=== PATIENT | female | born 2000 | race Caucasian/White ===

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

== ENCOUNTER → 2021-03-27 | Outpatient (CLI) | payer BC, OTHER | END | disposition home or self-care (01) | LOC: LABWHC1 13:04 | PROVIDERS: ATTEND Emergency Medicine | DX: Z20.822 Contact with and (suspected) exposure to COVID-19 (principal) | CPT/HCPCS: 87635 ==

== ENCOUNTER → 2021-03-28 | Outpatient (CLI) | payer BC, OTHER | END | disposition home or self-care (01) | LOC: LABWHC1 13:47 | PROVIDERS: ATTEND Emergency Medicine | DX: Z03.818 Encounter for observation for suspected exposure to other biological agents ruled out (principal); Z20.828 Contact with and (suspected) exposure to other viral communicable diseases | CPT/HCPCS: 87635 ==

== ENCOUNTER 2023-03-21 22:20 | Emergency (ER) | payer BC, OTHER ==
--- NOTE | 2023-03-21 22:26 | ED ---
General Adult HPI - General Chief complaint: Extremity Injury, Lower Stated complaint: Right foot Injury Time Seen by Provider: 03/21/23 22:25 Source: patient, RN notes reviewed - History of Present Illness Initial comments: 23 year old female presents to the emergency department for chief complaint of right foot pain. She states that she jumped over the couch and her foot bent inward. She reports pain to her lateral right foot. She states that if she attempts to bear weight and she has significant pain in her foot. She admits to taking acetaminophen following the incident. Denies numbness, tingling. - Related Data Home Medications Medication Instructions Recorded Confirmed Aspirin/Acetaminophen/Caffeine 1 each PO DIRECTED 12/22/16 12/22/16 [Excedrin Migraine Caplet] Cyanocobalamin [Vitamin B-12] 12/22/16 Previous Rx's Medication Instructions Recorded Ondansetron Odt [Zofran Odt] 4 mg PO Q8HR PRN #8 tab 12/22/16 Amoxicillin/Potassium Clav 1 tab PO Q12HR #20 tab 05/29/19 [Augmentin 875-125 Tablet] valACYclovir HCL [Valtrex] 1,000 mg PO Q8HR #30 tab 05/29/19 Allergies Allergy/AdvReac Type Severity Reaction Status Date / Time No Known Allergies Allergy Verified 03/21/23 22:26 Review of Systems ROS Statement: Those systems with pertinent positive or pertinent negative responses have been documented in the HPI. ROS Other: All systems not noted in ROS Statement are negative. Past Medical History Past Medical History: No Reported History History of Any Multi-Drug Resistant Organisms: None Reported Past Surgical History: No Surgical Hx Reported Past Psychological History: No Psychological Hx Reported Past Alcohol Use History: None Reported Past Drug Use History: None Reported General Exam - General Exam Comments Initial Comments: Physical Exam Vital signs reviewed General: Well-appearing, nontoxic, no acute distress. Head: Normocephalic, atraumatic Eyes: PERRLA, EOMI ENT: Airway patent Chest: Nonlabored breathing Skin: No visual rash, normal skin tone Neuro: Alert and oriented 3 Musculoskeletal: No gross abnormalities Limitations: physical limitation General appearance: alert, in no apparent distress Head exam: Present: atraumatic, normocephalic, normal inspection Eye exam: Present: normal appearance Respiratory exam: Present: normal lung sounds bilaterally. Absent: respiratory distress, wheezes, rales, rhonchi, stridor Cardiovascular Exam: Present: regular rate, normal rhythm, normal heart sounds. Absent: systolic murmur, diastolic murmur, rubs, gallop, clicks Extremities exam: Present: tenderness (Lateral right foot), normal capillary refill, other (DP and PT pulses 2+ ). Absent: full ROM (Decreased due to pain), pedal edema, joint swelling Neurological exam: Present: alert, oriented X3 Psychiatric exam: Present: normal affect, normal mood Skin exam: Present: warm, dry, intact, normal color. Absent: rash Course Vital Signs 03/21/23 03/21/23 22:24 23:40 Temperature 97.7 F Pulse Rate 97 69 Respiratory 16 18 Rate Blood Pressure 144/89 135/83 O2 Sat by Pulse 99 99 Oximetry Procedures - Orthopedic Splinting/Casting Injury #1 Side: right Lower Extremity Injury Location: short leg Other Orthopedic Equipment: crutches Medical Decision Making - Medical Decision Making I preformed the quick note portion of this chart. Electronically signed by Pat Dupont PA-C Was pt. sent in by a medical professional or institution (OLGA Riggins, BORING MACHINE SET UP OPERATOR, urgent care, hospital, or senior care...) When possible be specific @ -No Did you speak to anyone other than the patient for history (EMS, parent, family, police, friend...)? What history was obtained from this source @ -No Did you review nursing and triage notes (agree or disagree)? Why? @ -I reviewed and agree with nursing and triage notes Were old charts reviewed (outside hosp., previous admission, EMS record, old EKG, old radiological studies, urgent care reports/EKG's, senior care records)? Report findings @ -No old charts were reviewed Differential Diagnosis (chest pain, altered mental status, abdominal pain women, abdominal pain men, vaginal bleeding, weakness, fever, dyspnea, syncope, headache, dizziness, GI bleed, back pain, seizure, CVA, palpatations, mental health, musculoskeletal)? @ -Differential Musculoskeletal Muscular strain, contusion, ligament sprain, fracture, arthritis, septic arthritis, bursitis, cellulitis, muscle spasm, nerve compression, DVT, arterial occlusion, herpes zoster, electrolyte abnormality, tumor.... This is not meant to be in all inclusive list EKG interpreted by me (3pts min.). @ -None X-rays interpreted by me (1pt min.). @ XR foot showsfracture of the fifth metatarsal diaphysis CT interpreted by me (1pt min.). @ -None done U/S interpreted by me (1pt. min.). @ -None done What testing was considered but not performed or refused? (CT, X-rays, U/S, labs)? Why? @ -None What meds were considered but not given or refused? Why? @ -None Did you discuss the management of the patient with other professionals (professionals i.e. , PA, BORING MACHINE SET UP OPERATOR, lab, RT, psych nurse, social work nurse, looping inspector, teacher, correctional officer lieutenant, supportive employment case manager)? Give summary @ -No Was smoking cessation discussed for >3mins.? @ -No Was critical care preformed (if so, how long)? @ -No Were there social determinants of health that impacted care today? How? (Homelessness, low income, unemployed, alcoholism, drug addiction, transportation, low edu. Level, literacy, decrease access to med. care, prison, rehab)? @ -No Was there de-escalation of care discussed even if they declined (Discuss DNR or withdrawal of care, Hospice)? DNR status @ -No What co-morbidities impacted this encounter? (DM, HTN, Smoking, COPD, CAD, Cancer, CVA, ARF, Chemo, Hep., AIDS, mental health diagnosis, sleep apnea, morbid obesity)? @ -None Was patient admitted / discharged? Hospital course, mention meds given and route, prescriptions, significant lab abnormalities, going to OR and other pertinent info. @ -Discharged. Patient presented to emergency department chief complaint of right lateral foot pain following an injury in which she landed on the side of her foot. XR right foot shows 5th metatarsal diaphysis fracture. Patient placed in short leg splint and given crutches and orthopedic follow up. Neurovascular status assessed post splint and intact. Patient stable at time of discharge. Case discussed with Dr. Mota Undiagnosed new problem with uncertain prognosis? @ -No Drug Therapy requiring intensive monitoring for toxicity (Heparin, Nitro, Insulin, Cardizem)? @ -No Were any procedures done? @ -Splint Diagnosis/symptom? @ -5th metatarsal fracture Acute, or Chronic, or Acute on Chronic? @ -acute Uncomplicated (without systemic symptoms) or Complicated (systemic symptoms)? @ -uncomplicated Side effects of treatment? @ -No Exacerbation, Progression, or Severe Exacerbation? @ -No Poses a threat to life or bodily function? How? (Chest pain, [place], [place], pneumonia, PE, COPD, DKA, ARF, appy, cholecystitis, CVA, Diverticulitis, Homicidal, Suicidal, threat to staff... and all critical care pts) @ -No Disposition Clinical Impression: Fracture of 5th metatarsal Disposition: HOME SELF-CARE Condition: Stable Instructions (If sedation given, give patient instructions): Foot Fracture in Adults (ED) Additional Instructions: Please follow up with orthopedics. Return to the emergency department for new or worsening symptoms. Is patient prescribed a controlled substance at d/c from ED?: No Referrals: None,Stated [Primary Care Provider] - 1-2 days Cortes Weeks DO [Doctor of Osteopathic Medicine] - 1-2 days
[2023-03-21 22:32] VITALS: TEMP 97.7
[2023-03-22 00:01] VITALS: BP 135/83; PULSE 69; RESP 18
--- NOTE | 2023-03-22 00:49 | XR ---
EXAM: XR Right Foot Complete, 3 or More Views CLINICAL HISTORY: ITS.REASON XR Reason: twisting injury TECHNIQUE: Frontal, lateral and oblique views of the right foot. COMPARISON: No relevant prior studies available. FINDINGS: Bones/joints: Nondisplaced fracture of the fifth metatarsal diaphysis. No dislocation. Soft tissues: Unremarkable. No radiopaque foreign body. IMPRESSION: Nondisplaced fracture of the fifth metatarsal diaphysis.
== END 2023-03-21 23:42 | disposition home or self-care (01) ==
LOC: EC 22:20
DX: S92.351A Displaced fracture of fifth metatarsal bone, right foot, initial encounter for closed fracture (principal); Z79.82 Long term (current) use of aspirin; X50.1XXA Overexertion from prolonged static or awkward postures, initial encounter
CPT/HCPCS: 29515; 99283

== ENCOUNTER → 2023-11-09 | Outpatient (CLI) | payer OTHER ==
[2023-11-09 23:16] LABS: Basophils # (A) 0.06 X 10*3/uL (0.00-0.10); Basophils % (A) 1.6 %; Eosinophils # (A) 0.14 X 10*3/uL (0.04-0.35); Eosinophils % (A) 3.7 %; HCT 41.8 % (37.2-46.3); HGB 13.8 g/dL (12.0-15.0); Lymphocytes # (A) 1.26 X 10*3/uL (0.90-5.00); Lymphocytes % (A) 33.3 %; MCH 29.7 pg (27.0-32.0); MCV 90.1 FL (80.0-97.0); Mean Platelet Volume 10.5 FL (9.5-12.2); Monocytes # (A) 0.32 X 10*3/uL (0.20-1.00); Monocytes % (A) 8.5 %; NRBC Per 100 WBC 0 X 10*3/uL (0.00-0.01); Neutrophils # (A) 1.99 X 10*3/uL (1.80-7.70); Neutrophils % (A) 52.6 %; Platelet Count 178 X 10*3/uL (140-440); RBC 4.64 X 10*6/uL (4.10-5.20); RDW 11.9 % (11.5-14.5); WBC 3.78 X 10*3/uL (4.50-10.00)
[2023-11-11 15:53] LABS: Cardiolipin Ab IgG Interp Negative (Negative); Cardiolipin Ab IgM Interp Negative (Negative); Cardiolipin IgA Antibody <2.0 U/mL; Cardiolipin IgM Antibody <1.5 U/mL
== END | disposition home or self-care (01) ==
LOC: LABWHC1 10:19
PROVIDERS: ATTEND Dermatology MOHS-Micrographic Surgery
DX: L82.1 Other seborrheic keratosis (principal); R23.1 Pallor
CPT/HCPCS: 36415; 85025; 86038; 86147

== ENCOUNTER 2024-02-27 19:54 | Emergency (ER) | payer OTHER ==
[2024-02-27 20:12] VITALS: TEMP 98.2
--- NOTE | 2024-02-27 20:34 | ED ---
Nausea/Vomiting/Diarrhea HPI - General Chief complaint: Nausea/Vomiting/Diarrhea Stated complaint: 8 wks preg, vomiting Time Seen by Provider: 02/27/24 20:10 Source: patient, RN notes reviewed Mode of arrival: ambulatory Limitations: no limitations - History of Present Illness Initial comments: 23-year-old female G1, presents emergency department accompanied by her with chief complaint of nausea, vomiting, abdominal cramping during . Patient believes that she is about 10 weeks gestation and has had 1 visit during this however has had no ultrasounds. She states that she has been having multiple episodes of emesis and feels nauseous quite frequently which is causing her to decreased oral intake. Patient is concerned that she is dehydrated. She endorses mild abdominal cramping. Denies vaginal bleeding - Related Data Home Medications Medication Instructions Recorded Confirmed Aspirin/Acetaminophen/Caffeine 1 each PO DIRECTED 12/22/16 12/22/16 [Excedrin Migraine Caplet] Cyanocobalamin [Vitamin B-12] 12/22/16 Previous Rx's Medication Instructions Recorded Ondansetron Odt [Zofran Odt] 4 mg PO Q8HR PRN #8 tab 12/22/16 Amoxicillin/Potassium Clav 1 tab PO Q12HR #20 tab 05/29/19 [Augmentin 875-125 Tablet] valACYclovir HCL [Valtrex] 1,000 mg PO Q8HR #30 tab 05/29/19 Ondansetron Odt [Zofran Odt] 4 mg PO Q8HR PRN #10 tab 02/27/24 Allergies Allergy/AdvReac Type Severity Reaction Status Date / Time No Known Allergies Allergy Verified 02/27/24 20:11 Review of Systems ROS Statement: Those systems with pertinent positive or pertinent negative responses have been documented in the HPI. ROS Other: All systems not noted in ROS Statement are negative. Past Medical History Past Medical History: No Reported History History of Any Multi-Drug Resistant Organisms: None Reported Past Surgical History: No Surgical Hx Reported Past Psychological History: No Psychological Hx Reported Smoking Status: Never smoker Past Alcohol Use History: None Reported Past Drug Use History: None Reported General Exam Limitations: no limitations General appearance: alert, in no apparent distress Eye exam: Present: normal appearance, PERRL, EOMI. Absent: scleral icterus, conjunctival injection, periorbital swelling ENT exam: Present: normal exam, mucous membranes moist Neck exam: Present: normal inspection. Absent: tenderness, meningismus, lymphadenopathy Respiratory exam: Present: normal lung sounds bilaterally. Absent: respiratory distress, wheezes, rales, rhonchi, stridor Cardiovascular Exam: Present: regular rate, normal rhythm, normal heart sounds. Absent: systolic murmur, diastolic murmur, rubs, gallop, clicks GI/Abdominal exam: Present: soft, tenderness (suprapubic), normal bowel sounds. Absent: distended, guarding, rebound, rigid Extremities exam: Present: normal inspection, full ROM, normal capillary refill. Absent: tenderness, pedal edema, joint swelling, calf tenderness Back exam: Present: normal inspection Skin exam: Present: warm, dry, intact, normal color. Absent: rash Course Vital Signs 02/27/24 02/27/24 20:09 21:35 Temperature 98.2 F Pulse Rate 96 70 Respiratory 17 16 Rate Blood Pressure 128/84 107/75 O2 Sat by Pulse 98 100 Oximetry Medical Decision Making - Medical Decision Making Was pt. sent in by a medical professional or institution (, PA, RADIOLOGIC THERAPIST, urgent care, hospital, or [facility]...) When possible be specific @ -No Did you speak to anyone other than the patient for history (EMS, parent, family, police, friend...)? What history was obtained from this source @ -No Did you review nursing and triage notes (agree or disagree)? Why? @ -I reviewed and agree with nursing and triage notes Were old charts reviewed (outside hosp., previous admission, EMS record, old EKG, old radiological studies, urgent care reports/EKG's, [facility] records)? Report findings @ -No old charts were reviewed Differential Diagnosis (chest pain, altered mental status, abdominal pain women, abdominal pain men, vaginal bleeding, weakness, fever, dyspnea, syncope, headach e, dizziness, GI bleed, back pain, seizure, CVA, palpatations, mental health, musculoskeletal)? @ -Differential Abdominal Pain Women: Appendicitis, Cholecystitis, diverticulosis, ischemic bowel, pancreatitis, hepatitis, UTI, gastroenteritis, AAA, incarcerated hernia, bowel obstruction, constipation, inflammatory bowel, hepatitis, peptic ulcer disease, splenic infarction, perforated viscus, vulvitis, ovarian torsion, PID, kidney stone, placenta abruption, this is not meant to be an all-inclusive list EKG interpreted by me (3pts min.). @ -None X-rays interpreted by me (1pt min.). @ -None done CT interpreted by me (1pt min.). @ -None done U/S interpreted by me (1pt. min.). @ -Ultrasound reveals a single live intrauterine with a calculated gestational age of 8 weeks 3 days with a heart rate of 165 bpm What testing was considered but not performed or refused? (CT, X-rays, U/S, labs)? Why? @ -None What meds were considered but not given or refused? Why? @ -None Did you discuss the management of the patient with other professionals (professionals i.e. , PA, RADIOLOGIC THERAPIST, lab, RT, psych nurse, social human services assistants, group billing coordinator, teacher, search and rescue officer, comp field case manager)? Give summary @ -No Was smoking cessation discussed for >3mins.? @ -No Was critical care preformed (if so, how long)? @ -No Were there social determinants of health that impacted care today? How? (Homelessness, low income, unemployed, alcoholism, drug addiction, transportation, low edu. Level, literacy, decrease access to med. care, skilled nursing, rehab)? @ -No Was there de-escalation of care discussed even if they declined (Discuss DNR or withdrawal of care, Hospice)? DNR status @ -No What co-morbidities impacted this encounter? (DM, HTN, Smoking, COPD, CAD, Cancer, CVA, ARF, Chemo, Hep., AIDS, mental health diagnosis, sleep apnea, morbid obesity)? @ -None Was patient admitted / discharged? Hospital course, mention meds given and route, prescriptions, significant lab abnormalities, going to OR and other p ertinent info. @ - discharged. 23-year-old female with abdominal cramping, nausea and vomiting during . Patient's vitals are stable. Physical examination benign aside from mild suprapubic tenderness to palpation. Patient is symptomatically treated with IV fluids and antiemetics pending laboratory results and ultrasound. She is in agreement with this plan. CBC and CMP unremarkable, urinalysis remarkable for 4+ ketones which is consistent with dehydration. Which was unremarkable for similar intrauterine with an age of 8 weeks 3 days gestational heart rate of 165. Patient is provided with prescription for Zofran to take as needed. Patient has an appointment scheduled with her OB already for further evaluation recommends to keep this appointment. All questi ons answered at bedside and strict return parameters jane the patient she is verbalized understanding. Case discussed with Dr. Burton Undiagnosed new problem with uncertain prognosis? @ -No Drug Therapy requiring intensive monitoring for toxicity (Heparin, Nitro, Insulin, Cardizem)? @ -No Were any procedures done? @ -No Diagnosis/symptom? @ -nasuea and vomiting during , abdominal cramping during , intrauterine Acute, or Chronic, or Acute on Chronic? @ -Acute Uncomplicated (without systemic symptoms) or Complicated (systemic symptoms)? @ -uncomplicated Side effects of treatment? @ -No Exacerbation, Progression, or Severe Exacerbation? @ -No Poses a threat to life or bodily function? How? (Chest pain, [place], [place], pneumonia, PE, COPD, DKA, ARF, appy, cholecystitis, CVA, Diverticulitis, Homicidal, Suicidal, threat to staff... and all critical care pts) @ -No - Lab Data Result diagrams: 02/27/24 20:54 02/27/24 20:54 Lab Results 02/27/24 02/27/24 02/27/24 Range/Units 20:54 20:54 20:54 WBC 7.4 (3.8-10.6) k/uL RBC 4.73 (3.80-5.40) m/uL Hgb 14.3 (11.4-16.0) gm/dL Hct 42.6 (34.0-46.0) % MCV 90.0 (80.0-100.0) fL MCH 30.3 (25.0-35.0) pg MCHC 33.7 (31.0-37.0) g/dL RDW 11.9 (11.5-15.5) % Plt Count 194 (150-450) k/uL MPV 6.8 Neutrophils % 73 % Lymphocytes % 19 % Monocytes % 5 % Eosinophils % 1 % Basophils % 1 % Neutrophils # 5.4 (1.3-7.7) k/uL Lymphocytes # 1.4 (1.0-4.8) k/uL Monocytes # 0.4 (0-1.0) k/uL Eosinophils # 0.1 (0-0.7) k/uL Basophils # 0.0 (0-0.2) k/uL Sodium 136 L (137-145) mmol/L Potassium 3.7 (3.5-5.1) mmol/L Chloride 103 (98-107) mmol/L Carbon Dioxide 24 (22-30) mmol/L Anion Gap 9 mmol/L BUN 9 (7-17) mg/dL Creatinine 0.61 (0.52-1.04) mg/dL Est GFR (CKD-EPI)AfAm >90 (>60 ml/min/1.73 sqM) Est GFR (CKD-EPI)NonAf >90 (>60 ml/min/1.73 sqM) Glucose 79 (74-99) mg/dL Calcium 9.4 (8.4-10.2) mg/dL Total Bilirubin 0.7 (0.2-1.3) mg/dL AST 31 (14-36) U/L ALT 23 (4-34) U/L Alkaline Phosphatase 57 (38-126) U/L Total Protein 7.1 (6.3-8.2) g/dL Albumin 4.5 (3.5-5.0) g/dL Urine Color Yellow Urine Appearance Cloudy H (Clear) Urine pH 6.0 (5.0-8.0) Ur Specific [place] 1.026 (1.001-1.035) Urine Protein Trace H (Negative) Urine Glucose (UA) Negative (Negative) Urine Ketones 4+ H (Negative) Urine Blood Negative (Negative) Urine Nitrite Negative (Negative) Urine Bilirubin Negative (Negative) Urine Urobilinogen <2.0 (<2.0) mg/dL Ur Leukocyte Esterase Negative (Negative) Urine RBC <1 (0-5) /hpf Urine WBC 1 (0-5) /hpf Ur Squamous Epith Cells 3 (0-4) /hpf Urine Mucus Many H (None) /hpf Disposition Clinical Impression: Nausea and vomiting during , Abdominal cramping affecting Disposition: HOME SELF-CARE Condition: Good Instructions (If sedation given, give patient instructions): Nausea and Vomiting in (ED) Additional Instructions: Return to the emergency department for any new or worsening symptoms. Recommend that you increase hydration. Take prescribed medication only as needed for nausea. Prescriptions: Ondansetron Odt [Zofran Odt] 4 mg PO Q8HR PRN #10 tab PRN Reason: Nausea Is patient prescribed a controlled substance at d/c from ED?: No Referrals: None,Stated [Primary Care Provider] - 1-2 days Time of Disposition: 22:04
[2024-02-27] MEDS: SODIUM CHLORIDE 0.9% 2,000 ML IV STA (20:54)
[2024-02-27] MEDS: ONDANSETRON 4 MG/2 ML VIAL IVP STA (20:54)
[2024-02-27 20:58] LABS: Basophils % (A) 1 %; Eosinophils # (A) 0.1 k/uL (0-0.7); Eosinophils % (A) 1 %; HCT 42.6 % (34.0-46.0); HGB 14.3 gm/dL (11.4-16.0); Lymphocytes # (A) 1.4 k/uL (1.0-4.8); Lymphocytes % (A) 19 %; MCH 30.3 pg (25.0-35.0); MCHC 33.7 g/dL (31.0-37.0); Mean Platelet Volume 6.8; Monocytes # (A) 0.4 k/uL (0-1.0); Monocytes % (A) 5 %; Neutrophils # (A) 5.4 k/uL (1.3-7.7); Neutrophils % (A) 73 %; Platelet Count 194 k/uL (150-450); RBC 4.73 m/uL (3.80-5.40); RDW 11.9 % (11.5-15.5); WBC 7.4 k/uL (3.8-10.6)
[2024-02-27 21:07] LABS: ALT 23 U/L (4-34); AST 31 U/L (14-36); African American GFR (CKD) >90 (>60 ml/min/1.73 sqM); Albumin 4.5 g/dL (3.5-5.0); Alkaline Phosphatase 57 U/L (38-126); Anion Gap 9 mmol/L; Blood Urea Nitrogen 9 mg/dL (7-17); Calcium 9.4 mg/dL (8.4-10.2); Carbon Dioxide 24 mmol/L (22-30); Chloride 103 mmol/L (98-107); Glucose 79 mg/dL (74-99); Non-African American GFR(CKD) >90 (>60 ml/min/1.73 sqM); Potassium 3.7 mmol/L (3.5-5.1); Sodium 136 mmol/L (137-145); Total Bilirubin 0.7 mg/dL (0.2-1.3); Total Protein 7.1 g/dL (6.3-8.2)
[2024-02-27 21:09] LABS: Appearance,Urine Cloudy (Clear); Bilirubin,Urine Negative (Negative); Blood,Urine Negative (Negative); Color,Urine Yellow; Glucose,Urine (UA) Negative (Negative); Ketones,Urine 4+ (Negative); Leukocyte Esterase,Urine Negative (Negative); Mucus,Urine Many /hpf; Nitrite,Urine Negative (Negative); Protein,Urine Trace (Negative); RBC,Urine <1 /hpf (0-5); Specific Gravity,Urine 1.026 (1.001-1.035); Squamous Epithelial Cell,Urine 3 /hpf (0-4); Urobilinogen,Urine <2.0 mg/dL (<2.0); WBC,Urine 1 /hpf (0-5)
[2024-02-27 21:37] VITALS: BP 107/75; PULSE 70; RESP 16
--- NOTE | 2024-02-27 21:56 | US ---
EXAMINATION TYPE: Transabdominal DATE OF EXAM: 02/27/2024 9:33 PM COMPARISON: NONE CLINICAL INDICATION: Female, 23 years old with history of lower ab. cramping, 10 weeks gestation; Pa william states nausea and lower ab cramping. EXAM PERFORMED: Transabdominal (TA) EXAM MEASUREMENTS: GESTATIONAL AGE / DATING Physician Established: Not yet established Dates by LMP: (8 weeks/2 days) EDC: 10/06/2024 Dates by First Scan: No previous this is first scan Dates by Current Scan for: ( 8 weeks 3 days) EDC: 10/05/2024 MATERNAL ANATOMY Uterus: 8.7 x 6.6 x 7.8cm Right Ovary: 1.8 x 1.2 x 1.4cm Left Ovary: Obscured by bowel gas Post CDS / Adnexa: wnl as best seen Presence of free fluid: No Presence of corpus luteal cyst: Not seen Presence of subchorionic bleed: No GESTATION / SURVEY CRL: 1.87cm (8 weeks/3 days) MSD: 3.50cm (9 weeks/0 days) Yolk Sac (normal less than 6mm): 3mm Heart Rate: 165 bpm Rhythm: Normal IUP: Viable IUP Date of LMP: 12/31/2023 Beta HcG (if available): Not available at this time IMPRESSION: Single live intrauterine with calculated ultrasound age of 8 weeks and 3 days by means of c rown rump length with an estimated date of delivery of 10/06/2024. [facility], , 02/27/2024 9:54 PM
== END 2024-02-27 22:18 | disposition home or self-care (01) ==
LOC: EC 19:54
CPT/HCPCS: 36415; 76801; 80053; 81001; 84702; 85025; 96361; 96374; 99284

== ENCOUNTER → 2024-07-22 | Outpatient (CLI) | payer BC ==
[2024-07-22 18:03] LABS: Appearance,Urine Turbid (Clear); Bilirubin,Urine Negative (Negative); Blood,Urine Negative (Negative); Color,Urine Light Yellow; Glucose,Urine (UA) Negative (Negative); Ketones,Urine Negative (Negative); Leukocyte Esterase,Urine Small (Negative); Mucus,Urine Occasional /hpf; Nitrite,Urine Negative (Negative); PH, Urine 6.5 (5.0-8.0); Protein,Urine Negative (Negative); Specific Gravity,Urine 1.018 (1.001-1.035); Squamous Epithelial Cell,Urine 5 /hpf (0-4); Urobilinogen,Urine <2.0 mg/dL (<2.0); WBC,Urine 1 /hpf (0-5)
[2024-07-22 18:44] VITALS: BP 122/78; PULSE 89; RESP 17; TEMP 97.8
--- NOTE | 2024-08-07 23:59 | P.MSEPDOC ---
Presenting Problems - Arrival Data Date of Arrival on Unit: 07/22/24 Time of Arrival on Unit: 15:52 Mode of Transport: Ambulatory - Complaint OB-Reason for Admission/Chief Complaint: Pain Comment: pt presents to triage for constant lower abd, groin, and back pain, rating at 5-7/10 Medical History - Information : 1 Para: 0 Term: 0 : 0 Abortions: Spontaneous or Elective: 0 Number of Living Children: 0 - Gestational Age Gestational Age by HOANG (wks/days): 29 Weeks and 2 Days Review of Systems - Review of Systems Constitutional: No problems Breast: No problems ENT: No problems Cardiovascular: No problems Respiratory: No problems Gastrointestinal: No problems Genitourinary: No problems Musculoskeletal: No problems Neurological: No problems Skin: No problems Vital Signs - Temperature Temperature: 97.8 F Temperature Source: Temporal Artery Scan - Pulse Right Brachial Pulse Rate: 89 Pulse Assessment Method: Automatic Cuff - Respirations Respiratory Rate: 17 Oxygen Delivery Method: Room Air O2 Sat by Pulse Oximetry: 94 - Blood Pressure Right Arm Blood Pressure: 122/78 Blood Pressure Mean: 92 Blood Pressure Source: Automatic Cuff Medical Screen Scoring - Uterine Contractions Resting: Soft to palpation - Assessment - Baby A Baseline FHR: 140 Heart Rate - NICHD Category: Category I (Normal) NST: Reactive Physician Notification - Physician Notified Physician Notified Date: 07/22/24 Physician Notified Time: 16:59 Physician: Bull Owens New Order Received: Yes - Notification Comment Comment: obtained UA, reactive nst, discharged home, follow up in office in beginning of August, keep hydrated, try belly band for support, heat and ice if needed, tylenol prn 1000 mg Maternal Triage Index - Maternal Triage Index Presenting for scheduled procedure w/no complaint: No - Stat/Priority 1 Stat Priority 1: No - Urgent/Priority 2 Urgent Priority 2: Yes Provider Notified: Bull Owens Provider Notified Time: 16:59 Criteria Met for Priority 2: pt presents to triage for constant lower abd, groin, and back pain, rating at 5-7/10 Disposition - Disposition OB Disposition: Triage, Discharge to home, Written follow up instructions reviewed Discharge Date: 07/22/24 Discharge Time: 18:26 I agree with the RN Medical Screening Exam: Yes Physician's MSE Comment: I have neither seen nor examined the patient. Case reviewed; plan agreed upon as documented in EMR&OBIX.: Yes Diagnosis: RELATED CONDITIONS, UNSPECIFIED, THIRD TRIMESTER
== END ==
LOC: FBPOP 15:52
PROVIDERS: ATTEND Obstetrics & Gynecology
DX: O26.93 Pregnancy related conditions, unspecified, third trimester (principal); Z3A.29 29 weeks gestation of pregnancy
CPT/HCPCS: 59025; 81001; 99213

== ENCOUNTER 2024-10-01 00:16 | Outpatient (CLI) | payer BC ==
[2024-10-01] MEDS: BUTORPHANOL 1 MG/ML 1 ML VIAL IV PRN (02:45)
[2024-10-01] MEDS: LACTATED RINGERS 1,000 ML IV ONE (02:45)
[2024-10-01 04:15] VITALS: BP 128/82; PULSE 86; RESP 16; TEMP 97.1
--- NOTE | 2024-10-03 11:45 | P.MSEPDOC ---
Presenting Problems - Arrival Data Date of Arrival on Unit: 10/01/24 Time of Arrival on Unit: 00:16 Mode of Transport: Ambulatory - Complaint OB-Reason for Admission/Chief Complaint: Possible Onset of Labor Medical History - Information : 1 Para: 0 Term: 0 : 0 Abortions: Spontaneous or Elective: 0 Number of Living Children: 0 - Gestational Age Gestational Age by HOANG (wks/days): 39 Weeks and 3 Days Review of Systems - Review of Systems Constitutional: No problems Breast: No problems ENT: No problems Cardiovascular: No problems Respiratory: No problems Gastrointestinal: No problems Genitourinary: No problems Musculoskeletal: No problems Neurological: No problems Skin: No problems Vital Signs - Temperature Temperature: 97.1 F Temperature Source: Temporal Artery Scan - Pulse Pulse Oximetery Pulse Rate: 86 Pulse Assessment Method: Pulse Oximetry - Respirations Respiratory Rate: 16 Oxygen Delivery Method: Room Air O2 Sat by Pulse Oximetry: 97 - Blood Pressure Right Arm Blood Pressure: 128/82 Blood Pressure Mean: 97 Blood Pressure Source: Automatic Cuff Medical Screen Scoring - Cervical Exam Membranes: Intact - Uterine Contractions Frequency From (mins): 2 Frequency To (mins): 4 Duration From (seconds): 50 Duration To (seconds): 60 Intensity: Moderate Resting: Soft to palpation - Assessment - Baby A Baseline FHR: 140 Heart Rate - NICHD Category: Category I (Normal) NST: Reactive Physician Notification - Physician Notified Physician Notified Date: 10/01/24 Physician Notified Time: 00:25 Physician: Bull Owens Order Received: Yes (1L LR bolus, 1mg one time dose IVP Stadol.) Maternal Triage Index - Maternal Triage Index Presenting for scheduled procedure w/no complaint: No - Stat/Priority 1 Stat Priority 1: No - Urgent/Priority 2 Urgent Priority 2: No - Prompt/Priority 3 Prompt Priority 3: No - Non-Urgent/Priority 4 Non-Urgent Priority 4: Yes Criteria Met for Priority 4: Pt presents to triage with c/o cx 4-6 min apart Disposition - Disposition OB Disposition: Discharge to home Discharge Date: 10/01/24 Discharge Time: 03:45 I agree with the RN Medical Screening Exam: Yes Physician's MSE Comment: I have neither seen nor examined the patient. Case reviewed; plan agreed upon as documented in EMR&OBIX.: Yes Diagnosis: RELATED CONDITIONS, UNSPECIFIED, THIRD TRIMESTER
== END 2024-10-01 03:45 | disposition home or self-care (01) ==
LOC: FBPOP 00:16
PROVIDERS: ATTEND Obstetrics & Gynecology
DX: O26.893 Other specified pregnancy related conditions, third trimester (principal); Z3A.39 39 weeks gestation of pregnancy
CPT/HCPCS: 59025; 99213; 96374; 36415; J0595

== ENCOUNTER 2024-10-01 18:24 | Inpatient (IN) | payer BC ==
[2024-10-01] MEDS ORDERED: miSOPROStoL 200 MCG TAB PO PRN (19:57)
[2024-10-01] MEDS ORDERED: CARBOPROST TROMETHAMINE 250 MCG/ML 1 ML AMP IM PRN (19:57)
[2024-10-01] MEDS ORDERED: TERBUTALINE 1 MG/ML VIAL SQ PRN (19:57)
[2024-10-01] MEDS ORDERED: METHYLERGONOVINE 0.2 MG/ML 1 ML AMP IM PRN (19:57)
[2024-10-01] MEDS ORDERED: miSOPROStoL 200 MCG TAB RECTAL PRN (19:57)
[2024-10-01] MEDS ORDERED: TRANEXAMIC 1,000 MG/100ML-NACL 1,000 MG in EMPTY BAG 1 BAG IV PRN (19:57)
[2024-10-01] MEDS ORDERED: OXYTOCIN 10 UNIT/ML 1 ML VIAL IM PRN (19:57)
[2024-10-01] MEDS: MORPHINE SULFATE 4 MG/ML SYRINGE IV STA (20:29)
[2024-10-01] MEDS: MORPHINE SULFATE 2 MG/ML SYRINGE IM STA (20:32)
[2024-10-01] MEDS: LACTATED RINGERS 1,000 ML IV SCH (20:35)
[2024-10-01 21:15] LABS: Basophils # (A) 0.02 10*3/uL (0.00-0.10); Basophils % (A) 0.2 %; Eosinophils # (A) 0.04 10*3/uL (0.04-0.35); Eosinophils % (A) 0.4 %; HCT 36.4 % (37.2-46.3); HGB 12.5 g/dL (12.0-15.0); Lymphocytes # (A) 1.54 10*3/uL (0.90-5.00); Lymphocytes % (A) 14.6 %; MCHC 34.3 g/dL (32.0-37.0); MCV 87.3 fL (80.0-97.0); Mean Platelet Volume 10.1 fL (9.5-12.2); Monocytes # (A) 0.74 10*3/uL (0.20-1.00); Neutrophils % (A) 76.9 %; Platelet Count 223 10*3/uL (140-440); RBC 4.17 10*6/uL (4.10-5.20); RDW 12.5 % (11.5-14.5); WBC 10.53 10*3/uL (4.50-10.00)
[2024-10-02] MEDS: BUTORPHANOL 1 MG/ML 1 ML VIAL IV PRN (02:49)
[2024-10-02] MEDS: PENICILLIN G POTASSIUM 5,000,000 UNIT in SODIUM CHLORIDE 0.9% 100 ML IVPB ONE (03:01)
[2024-10-02] MEDS ORDERED: fentaNYL (PF) 50 MCG/ML 5 ML AMP ONE (05:59)
[2024-10-02] MEDS ORDERED: ROPIVACAINE 5 MG/ML 30 ML VIAL ONE (05:59)
[2024-10-02] MEDS ORDERED: SODIUM CHLORIDE 0.9% 250 ML BAG ONE (05:59)
[2024-10-02] MEDS: OXYTOCIN 30 UNITS/500 ML NS 30 UNIT in SALINE 1 500ML.BAG IV SCH (06:30)
[2024-10-02] MEDS: PENICILLIN G POTASSIUM 2,500,000 UNIT in SODIUM CHLORIDE 0.9% 100 ML IVPB SCH (06:55)
--- NOTE | 2024-10-02 07:19 | P.HPOB ---
History of Present Illness H&P Date: 10/02/24 Chief Complaint: labor 4-year-old G1, P0 presented at 39 weeks and 4 days complaining of contractions. She was here yesterday and fingertip dilated. When she presented today she was 1 cm, 80% effaced, -2 station. She was ofelia every 2 to 3 minutes and hurting very badly. I admitted her for morphine rest. After 4 hours she was 2 cm woke up still ofelia and in pain. She had some Stadol and then was admitted admitted fully when she was 3 cm and got an epidural. She still ofelia every 3 to 4 minutes and heart tones are category 1. Review of Systems All systems: negative Constitutional: Denies chills, Denies fever Eyes: denies blurred vision, denies pain Ears, nose, mouth and throat: Denies headache, Denies sore throat Cardiovascular: Denies chest pain, Denies shortness of breath Respiratory: Denies cough Gastrointestinal: Denies abdominal pain, Denies diarrhea, Denies nausea, Denies vomiting Genitourinary: Denies dysuria, Denies hematuria Musculoskeletal: Denies myalgias Integumentary: Denies pruritus, Denies rash Neurological: Denies numbness, Denies weakness Psychiatric: Denies anxiety, Denies depression Endocrine: Denies fatigue, Denies weight change Past Medical History Past Medical History: No Reported History History of Any Multi-Drug Resistant Organisms: None Reported Past Surgical History: No Surgical Hx Reported Past Psychological History: No Psychological Hx Reported Smoking Status: Never smoker Past Alcohol Use History: None Reported Past Drug Use History: None Reported Medications and Allergies Home Medications Medication Instructions Recorded Confirmed Type Vit No.179/Iron/Folic 1 tab PO DAILY 07/22/24 10/01/24 History [ Tablet] Allergies Allergy/AdvReac Type Severity Reaction Status Date / Time No Known Allergies Allergy Verified 10/01/24 18:53 Exam Osteopathic Statement: *. No significant issues noted on an osteopathic st ructural exam other than those noted in the History and Physical/Consult. Vital Signs Temp Pulse Resp BP Pulse Ox 10/01/24 20:18 97.1 F L 74 16 123/66 100 10/01/24 18:52 97.1 F L 74 16 123/66 100 Intake and Output 10/01/24 10/02/24 10/02/24 22:59 06:59 14:59 Other: # Voids 2 1 Weight 94.347 kg Heart: Regular rate and rhythm Lungs: Clear to auscultation bilaterally Abdomen: Soft, nontender Extremities: Negative Homans sign Results Result Diagrams: 10/01/24 20:52 Abnormal Lab Results - Last 24 Hours (Table) 10/01/24 Range/Units 20:52 WBC 10.53 H (4.50-10.00) 10*3/uL Hct 36.4 L (37.2-46.3) % Immature Gran # 0.09 H (0.00-0.04) 10*3/uL Neutrophils # 8.10 H (1.80-7.70) 10*3/uL Assessment and Plan (1) 39 weeks gestation of Current Visit: Yes Status: Acute Code(s): Z3A.39 - 39 WEEKS GESTATION OF SNOMED Code(s): 59353349 (2) Normal labor Current Visit: Yes Status: Acute Code(s): O80 - ENCOUNTER FOR FULL-TERM UNCOMPLICATED DELIVERY; Z37.9 - OUTCOME OF DELIVERY, UNSPECIFIED SNOMED Code(s): 76313048 Plan: 1. Admit to family birthplace 2. Expectant management 3. Anticipate normal vaginal delivery
[2024-10-02] MEDS: LIDOCAINE 0.5% (PF) 5 MG/ML (50 ML SDV) SQ PRN (16:49)
[2024-10-02] MEDS ORDERED: SIMETHICONE 80 MG CHEWABLE PO PRN (17:47)
[2024-10-02] MEDS ORDERED: LANOLIN CREAM 1 GM TUBE TOPICAL PRN (17:47)
[2024-10-02] MEDS ORDERED: HYDROCORTISONE 2.5% RECTAL CREAM 30 GM TUBE RECTAL PRN (17:47)
[2024-10-02] MEDS ORDERED: diphenhydrAMINE 25 MG CAP PO PRN (17:47)
[2024-10-02] MEDS ORDERED: ZOLPIDEM 5 MG TAB PO PRN (17:47)
[2024-10-02] MEDS ORDERED: diphenhydrAMINE 50 MG CAP PO PRN (17:47)
[2024-10-02] MEDS ORDERED: diphenhydrAMINE 50 MG/ML 1 ML VIAL IVP PRN ×2 (17:47)
--- NOTE | 2024-10-02 17:52 | P.PROBDLV ---
Vaginal Delivery Note - . Vaginal Delivery Note: The patient is a 24-year-old 1 para 0 admitted at 39-4/7 weeks by good dating parameters. She is admitted in probable early labor though with minimal cervical change. As result, she was admitted for morphine rest and evaluation for labor overnight. She was found to have made cervical change by the morning and actually had spontaneous rupture of membranes for clear fluid. She had Pitocin augmentation started and then epidural catheter placed for analgesia. She made slow but steady progress throughout the day through the latent and active phase of labor and ultimately reached complete. She pushed over the course of approximately 1-1/2 hours and reached a small crown but expressed significant exhaustion and had ineffective pushing for approximately 5-10 contractions continuously. She was offered an outlet vacuum extraction which she excepted. The cheerappy VAC vacuum was placed on the occiput and a small second-degree midline episiotomy which had been previously cut was utilized to deliver the baby with upward traction and maternal effort without significant difficulty. The vacuum was released, and the nose and mouth were thoroughly suction. There was a loose nuchal cord x 1 which was reduced after delivery of the infant. She was delivered of a viable 8 pound 1.8 ounce baby boy with Apgars of 7 at 1 minute and 9 at 5 minutes in the direct occiput anterior position. The placenta was delivered spontaneously, intact, grossly normal with a grossly normal, centrally inserted three-vessel cord. The second-degree midline episiotomy was noted to have not extended and was repaired in standard fashion using 3-0 chromic catgut without difficulty. Estimated blood loss for the case was approximately 400 mL as there was very short-term uterine atony following delivery. All sponge, instrument, and needle counts were correct. There were no complications. Both mother and infant are resting comfortably in recovery.
[2024-10-02 17:57] VITALS: RESP 16
[2024-10-02] MEDS ORDERED: OXYTOCIN 30 UNITS/500 ML NS 30 UNIT in SALINE 1 500ML.BAG IV SCH (18:00)
[2024-10-02] MEDS: IBUPROFEN 800 MG TAB PO PRN (18:16)
[2024-10-02] MEDS: BENZOCAINE/MENTHOL SPRAY 1 GM/SPRAY AEROSOL TOPICAL PRN (18:17)
[2024-10-02] MEDS: ACETAMINOPHEN TAB 500 MG TAB PO PRN (22:06)
[2024-10-02] MEDS: SENNOSIDES-DOCUSATE SODIUM 1 EACH TAB PO SCH (22:07)
[2024-10-02] MEDS: MEASLES-MUMPS-RUBELLA VACC/PF 0.5 ML VIAL SQ ONE (23:28)
[2024-10-02] MEDS: Rhogam IMMUNE GLOBULIN 1,500 UNIT/1 ML IM ONE (23:48)
[2024-10-03 04:58] LABS: Basophils # (A) 0.04 10*3/uL (0.00-0.10); Basophils % (A) 0.3 %; Eosinophils # (A) 0.04 10*3/uL (0.04-0.35); Eosinophils % (A) 0.3 %; HCT 28.4 % (37.2-46.3); Lymphocytes % (A) 13.1 %; MCH 30.2 pg (27.0-32.0); MCHC 33.8 g/dL (32.0-37.0); MCV 89.3 fL (80.0-97.0); Mean Platelet Volume 10.2 fL (9.5-12.2); Monocytes # (A) 1.09 10*3/uL (0.20-1.00); Monocytes % (A) 8.4 %; Neutrophils # (A) 10.03 10*3/uL (1.80-7.70); Neutrophils % (A) 77.3 %; Platelet Count 178 10*3/uL (140-440); RBC 3.18 10*6/uL (4.10-5.20); RDW 12.9 % (11.5-14.5); WBC 12.98 10*3/uL (4.50-10.00)
[2024-10-03 05:03] LABS: HGB 9.6 g/dL (12.0-15.0)
[2024-10-03 08:59] VITALS: PULSE 109
--- NOTE | 2024-10-03 11:09 | P.DS ---
Providers Date of admission: 10/01/24 20:01 Expected date of discharge: 10/03/24 Attending physician: Sandee Colby Primary care physician: Stated None - Discharge Diagnosis(es) (1) Normal spontaneous vaginal delivery Current Visit: Yes Status: Acute Hospital Course: The patient is a 24-year-old 1 para 0 admitted at 39-4/7 weeks by good dating parameters. She is admitted in probable early labor though she initially did not make any cervical change. She was admitted overnight for morphine rest and made cervical change overnight. In the morning she had spontaneous rupture of membranes for clear fluid and was found to be 3 cm. She had an epidural catheter placed for analgesia. She additionally had Pitocin augmentation started. She made gradual progress through the late and active phases of labor and ultimately reached complete where after she pushed to a vacuum-assisted normal spontaneous vaginal delivery of a viable 8 pound 1.8 ounce baby boy with Apgars of 7 at 1 minute and 9 at 5 minutes. Her course was unremarkable with vital signs remaining stable and her temperature was afebrile throughout. She was deemed stable for discharge on day #1 and was discharged home to follow-up in the office in 6 weeks time routinely. Discharge instructions included calling for any significantly increased bleeding or foul- smelling lochia, significantly increased fever or abdominal pain, perineal complaints, breast complaints, or anything else that concerned her. She was additionally instructed to have nothing in the vagina for at least 6 weeks time to include intercourse. She understood her instructions and agrees to follow-up as noted above. Discharge medications included continued vitamins as she has opted to breast-feed. She was otherwise to use [id number] analgesic pain medications as needed. Maternal blood type is O- and rubella status is nonimmune. She therefore was to receive the MMR vaccination prior to discharge. Procedures: #1. Pitocin augmentation #2. Epidural analgesia #3. Outlet vacuum assisted normal spontaneous vaginal delivery #4. Second-degree midline perineal episiotomy and repair Patient Condition at Discharge: Stable Plan - Discharge Summary New Discharge Prescriptions: No Action Vit No.179/Iron/Folic [ Tablet] 1 tab PO DAILY Discharge Medication List Vit No.179/Iron/Folic [ Tablet] 1 tab PO DAILY 07/22/24 [History] Follow up Appointment(s)/Referral(s): Bull Owens MD [STAFF PHYSICIAN] - 6 Weeks Discharge Disposition: HOME SELF-CARE
[2024-10-03 17:54] VITALS: BP 137/88; TEMP 98
== END 2024-10-03 19:16 | disposition home or self-care (01) | DRG 807 ==
LOC: FBPOP 18:24 → 4FBP 20:01
PROVIDERS: ADMIT Obstetrics & Gynecology; ATTEND Obstetrics & Gynecology
PROC: 10D07Z6 Extraction of Products of Conception, Vacuum, Via Natural or Artificial Opening (ICD-10-PCS; principal; 2024-10-02)
PROC: 0W8NXZZ Division of Female Perineum, External Approach (ICD-10-PCS; 2024-10-02)
PROC: 30233S1 Transfusion of Nonautologous Globulin into Peripheral Vein, Percutaneous Approach (ICD-10-PCS; 2024-10-02)
DX: O62.2 Other uterine inertia (principal); Z37.0 Single live birth; O75.81 Maternal exhaustion complicating labor and delivery; R53.83 Other fatigue; Z3A.39 39 weeks gestation of pregnancy
CPT/HCPCS: 59025; 84112; 85025; 85461; 86850; 86900; 86901; 90707; 99213